=== PATIENT | male | born 1985 ===

== ENCOUNTER 2018-01-08 19:53 | Emergency (ER) | payer SELFPAY ==
[~2018-01-08] VITALS: Ht 180.3 cm; Wt 105.0 kg
[2018-01-08 21:06] VITALS: BP 145/96; PULSE 98; RESP 18; TEMP 99.1; O2SAT 97
== END 2018-01-08 23:46 | disposition left against medical advice (07) ==
LOC: NED 19:53
DX: R06.02 Shortness of breath (principal)
CPT/HCPCS: 99281